=== PATIENT | female | born 1945 | race Caucasian/White ===

== ENCOUNTER → 2020-07-19 09:42 | Outpatient (CLI) | payer MEDICARE, SELFPAY | PROVIDERS: Visit Provider Internal Medicine Gastroenterology | DX: Z11.52 Encounter for screening for COVID-19 (principal) | CPT/HCPCS: U0003 ==

== ENCOUNTER 2020-07-21 09:59 | Day surgery (SDC) | payer MEDICARE, SELFPAY ==
[2020-07-17 15:37] VITALS: BMI 28.9
[2020-07-21] VITALS (8 sets, daily range): BP systolic 112–165; BP diastolic 62–76; PULSE 57–81; RESP 17–18; TEMP 36.1–36.8; O2SAT 95–100
--- NOTE | 2020-07-21 11:19 | P.PN_ITS ---
[facility] [place] Anesthesia Checklist - Structural Data Admitted From: Home Planned Operative Procedure/s: egd Consent for Planned Operative Procedure(s) Verified: Yes - Airway Assessment C-Spine Mobility Assessed: Yes TMJ Mobility Assessed: Yes Dentition: Good Dentition - Neurological Assessment Level of Consciousness: Awake, Alert, Appropriate - Anesthesia Plan Anesthesia Risk discussed: Yes Anesthesia Plan: Verified ASA Class: II Anesthesia Type: MAC [facility] [place] History I have reviewed the patient's past medical history: Yes Medical History: Denies:: Cancer, Diabetes Mellitus Type 1, Diabetes Mellitus Type 2, Internal Pacemaker, MRSA, Seizures *Have you ever received a pneumonia vaccine?: Yes *Have you received a flu vaccine this season?: Yes Anesthesia experience/problems:: none Laterality Cases: Bilateral: Partial Knee Replacement Other Surgeries: No: Pacemaker Amputation: No Fractures: No - *Social History Smoking Status: Never smoker Alcohol Intake: current Alcohol Intake Frequency:: a few times a week Substance Use Type: denies use *Occupational Status:: retired Housing: house Household Members: spouse *Travel in the last 8 weeks: None Family Hx:: No significant family history
--- NOTE | 2020-07-21 11:38 | HMH.PROC ---
[facility] Procedure Note Procedure Note:: Upper Endoscopy Procedure Report: Esophagogastroduodenoscopy with cold biopsies and TTS balloon dilation Endoscopost: Peter Hackett II, MD Referring Physician: Mitra Castro PA-C Date of Procedure: July 21, 2020 Equipment: Olympus GIF 190 standard upper endoscope Sedation: MAC sedation Indications: Mrs. Sal is a 75-year-old female who recently has had more nausea, lack of appetite and weight loss of 15 pounds. She has had some epigastric abdominal discomfort and dyspepsia. She has had some spinal issues and has seen Dr. Molina (orthopedic spine) and Dr. SHEA Flores (pain management) but continues to have issues and is on gabapentin. The patient does report bloating, belching, nausea and some early satiety. She has had some chronic constipation. She reports no dysphagia but does have occasional globus. She did have a colonoscopy with me in January 2019 and had 4 polyps (tubulovillous adenoma x1, tubular adenomas x2 and small serrated adenoma x1) removed. She was given 2-year surveillance interval because of these adenomatous polyps. Procedure: Prior to the procedure, a history and physical exam was performed, and patient's medications and allergies were reviewed. The risks, benefits and alternatives of the sedation and procedure were discussed with the patient. All questions were answered and informed consent was obtained. The patient was brought to the procedure room. Patient identification and proposed procedure were verified by the physician and the nurse. The patient was placed in a left lateral decubitus position and the scope was passed under direct vision. Throughout the procedure, the patient's blood pressure, pulse, and oxygen saturations were monitored continuously. The upper GI endoscopy was accomplished without difficulty. The patient tolerated the procedure well. Findings: The scope was passed directly into the upper esophagus and advanced to the third portion of the duodenum. The post bulbar duodenum and duodenal bulb were normal with normal mucosa and conniventes. The ampulla was normal in appearance but there was some minor extrinsic compression. The scope was withdrawn through a normal duodenal bulb and pylorus into the stomach. There was bile reflux with some linear reactive gastropathy of the antrum. The remainder of the body and fundus of the stomach were grossly normal. Upon retroflexion there was no hiatal hernia. 2 biopsies were taken in the antrum and along the lesser curvature for histology to rule out gastritis and/or H pylori. The scope was then withdrawn into the esophagus. There was a serrated Z-line. Biopsies were taken at the GE junction. There was no evidence of reflux esophagitis, Gomez's or Schatzki's ring. There were tertiary contractions and evidence of moderate esophageal dysmotility. The entire esophagus was dilated to 60 Indonesian/20 mm with a TTS hydrostatic balloon. There was mild resistance at the cricopharyngeus. The remainder of the esophageal mucosa was normal. Impression: 1. Nonerosive GERD 2. Mild linear reactive gastropathy Plan: The patient does have some functional dyspepsia/functional GERD possibly related to obstipation. Based upon her weight loss, I would recommend CT scan of the abdomen as well. I will follow-up the biopsies and I will discuss additional dietary measures and treatment options.
== END 2020-07-21 13:10 | disposition home or self-care (01) ==
LOC: OUTP 10:00
PROVIDERS: PCP Physician Assistant; Visit Provider Internal Medicine Gastroenterology
PROC: 0DJ08ZZ Inspection of Upper Intestinal Tract, Via Natural or Artificial Opening Endoscopic (ICD-10-PCS; CPT 43235; principal; 2020-07-21 11:00)
DX: K22.4 Dyskinesia of esophagus (principal); K21.9 Gastro-esophageal reflux disease without esophagitis; K31.9 Disease of stomach and duodenum, unspecified; Z87.19 Personal history of other diseases of the digestive system; Z87.39 Personal history of other diseases of the musculoskeletal system and connective tissue; F41.9 Anxiety disorder, unspecified; Z79.899 Other long term (current) drug therapy
CPT/HCPCS: 43239; 43249; 88305; C1726

== ENCOUNTER → 2020-08-03 09:51 | Outpatient (CLI) | payer MEDICARE, SELFPAY ==
[2020-08-03 10:45] LABS: Blood Urea Nitrogen 11 mg/dl (7-17); Estimated Glomerular Filt Rate 81 ml/min (>60); GFR (African American) 98 ML/MIN (>60)
== END ==
PROVIDERS: Visit Provider Internal Medicine Gastroenterology
DX: Z01.818 Encounter for other preprocedural examination (principal)
CPT/HCPCS: 36415; 82565; 84520

== ENCOUNTER → 2020-08-08 09:44 | Outpatient (CLI) | payer MEDICARE, SELFPAY ==
--- NOTE | 2020-08-08 09:49 | CT_ITS ---
PROCEDURE: CT ABDOMEN PELVIS W CON CLINICAL INDICATION: NAUSEA,WEIGHT LOSS, GASTRITIS, UPPER ABD PAIN Lt upper quad pain Lost 15lbs in 2 months COMPARISON: No exams were available for comparison TECHNIQUE: IV Contrast: 75ML Isovue 370 Oral Contrast None Axial images obtained with sagittal and coronal reformats. All CT scans at the facility use one or more dose reduction, viz: automated exposure control, ma/kV adjustment per patient size (including targeted exams where dose is matched to indication, i.e. head), or iterative reconstruction technique. FINDINGS: LOWER THORAX: No acute finding ABDOMEN & PELVIS: The liver, spleen, adrenal glands, pancreas, and kidneys have an unremarkable appearance. No intestinal obstruction or free air. No evidence of appendicitis. No evidence of diverticulitis. No pelvic mass or abnormal fluid collection apparent. There is degenerative disc disease at L1-L2 with mild kyphosis. Mild degenerative disc disease L2-L3. Minimal anterolisthesis L5 on S1 of 4 mm. Tiny umbilical hernia containing fat. IMPRESSION: No acute finding. Dictated by: Jered Altamirano MD 08/09/2020 11:08 Jered Altamirano MD in [place] 08/09/2020 11:08
== END ==
PROVIDERS: PCP Physician Assistant; Visit Provider Internal Medicine Gastroenterology
DX: R10.10 Upper abdominal pain, unspecified (principal); R11.0 Nausea; R63.4 Abnormal weight loss; K29.70 Gastritis, unspecified, without bleeding; K59.00 Constipation, unspecified
CPT/HCPCS: 74177; Q9967

== ENCOUNTER → 2020-09-25 10:17 | Outpatient (POV) | payer MEDICARE, SELFPAY | PROVIDERS: Visit Provider Nurse Practitioner Family | DX: Z00.00 Encounter for general adult medical examination without abnormal findings (principal) ==